=== PATIENT | male | born 1985 | race Caucasian/White ===

== ENCOUNTER 2018-02-18 19:21 | Emergency (ER) | payer OTHER, SELFPAY ==
[2018-02-18 19:22] VITALS: BP 147/100; PULSE 86; RESP 16; TEMP 37.2; O2SAT 96; BMI 19.5
--- NOTE | 2018-02-18 19:36 | ED.RN ---
ACCORDING TO ED DRUG SCREEN INDICATOR PT IS DRUG TEST PER [facility] AND THIS RN ASKED ADMITTED ATTORNEYS LEONARD TO CONTACT [facility] FOR PT.
--- NOTE | 2018-02-18 19:47 | ED.DCSUM_ITS ---
- ER Visit Summary Date of Service: 02/18/18 Chief Complaint: Left thumb laceration History of Present Illness: The patient is a 32 M left thumb laceration at work. Happened 2 hours prior to arrival. Bleeding controlled. Tetanus unknown. No paresthesias. No anticoagulation medications. Physical Examination: General: Alert and oriented ?3, no acute distress HEENT: Normocephalic, atraumatic. Moist mucosa membranes Neck: supple, nontender. Cardiovascular: Regular rate and rhythm, no murmurs Respiratory: Normal breath sounds, symmetric, no distress Abdomen: Soft, nontender, nondistended Extremities: Nontender, no edema, pulses intact ?4 Neuro: no focal neurological deficits. Skin: Left thumb: Less than 0.5 cm laceration radial aspect nailbed. No bleeding. No nailbed involvement. Test Results: [] Emergency Department Course and Treatment: Tetanus updated. Superficial laceration. Dermabond. Work restrictions were given. Follow-up with [facility]. Treatment Plan: [] Disposition: Discharge Impression: Left thumb laceration This note was generated with [employer] dictation software. It may contain incorrect words, spelling, and punctuation that were not noted in review of the chart prior to signing ED Disposition - Plan for ED Patient: Disposition: Home or Assisted Living Chief Complaint: Laceration Diagnosis: Laceration of left thumb Instructions: ED Laceration All Referrals: Care Physician,No Primary [Primary Care Provider] - [facility] [GROUP OF PHYSICIANS] - 3-5 Days
--- NOTE | 2018-02-18 20:00 | ED.RN ---
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 pt is to be tested per database and per company request. [facility] contacted.
[2018-02-18] MEDS: Diphth,Pertuss(Acell),Tet Vac 0.5 ML Vial IM (20:04)
== END 2018-02-18 20:52 | disposition home or self-care (01) ==
PROVIDERS: Emergency Provider Emergency Medicine
DX: S61.012A Laceration without foreign body of left thumb without damage to nail, initial encounter (principal); X58.XXXA Exposure to other specified factors, initial encounter; Y93.9 Activity, unspecified; Y92.89 Other specified places as the place of occurrence of the external cause; Y99.0 Civilian activity done for income or pay; Z23 Encounter for immunization; Z72.0 Tobacco use
CPT/HCPCS: 12001; 90471; 90715; 99283

== ENCOUNTER 2019-02-03 14:05 | Emergency (ER) | payer MEDICAID, SELFPAY ==
[2019-02-03 14:06] VITALS: BP 142/87; PULSE 82; RESP 16; TEMP 36.9; O2SAT 98; BMI 19.5
[2019-02-03 14:40] LABS: Absolute Lymphocyte Count 2.08 X10^3/ul (0.83-4.51); Absolute Neutrophil Count 3.1 X10^3/uL (2.0-7.7); Basophil# 0.04 X10^3/uL; Basophil% 0.7 % (0-1); Eosinophil# 0.04 X10^3/uL; Eosinophils% 0.7 % (0-5); Hematocrit 42.5 % (40-54); Lymphocyte # 2.08 X10^3/ul (4.0); Lymphocyte % 35.5 % (19-41); Mean Corp Hgb Conc 35.3 g/gl (32-36); Mean Corpuscular Hgb 33.3 pg (27.0-32.0); Mean Corpuscular Volume 94.4 fL (80-94); Mean Platelet Vol. 8.2 fl (6.2-12.0); Monocyte# 0.62 X10^3/uL; Monocyte% 10.6 % (0-10); Neutrophil # 3.08 X10^3/uL (2.7-7.7); Neutrophil % 52.5 % (47-70); Platelet Count 266 K/mm3 (150-450); RBC Distribution Width CV 13.1 % (11.6-14.6); RBC Distribution Width SD 45.5 fl (35.1-43.9); White Blood Count 5.9 K/mm3 (4.4-11.0)
[2019-02-03 14:41] LABS: POSITIVE COUNT NO; POSITIVE DIFFERENTIAL NO; POSITIVE MORPHOLOGY NO
[2019-02-03 14:50] LABS: Anion Gap 6 (5-15); BUN 6 mg/dL (7-18); BUN/Creat Ratio 8.1 RATIO (10-20); Calcium,Total 8.6 mg/dL (8.5-10.1); Chloride 102 mmol/L (98-107); Creatinine, Serum 0.74 mg/dL (0.70-1.30); EST Glomerular Filtration Rate 130 mL/min (>60); Est Glom Filt Rate - Afr Amer 157 mL/min (>60); Estimated Creatinine Clearance 113.87 ml/min; Glucose 89 mg/dL (74-106); Potassium 3.8 mmol/L (3.5-5.1); Sodium Level 135 mmol/L (136-145)
[2019-02-03 15:56] LABS: Bacteria 0 SEEN /hpf (None Seen); Mucous, Urine 0 SEEN /hpf (<or=2+); Red Blood Cells-Urine 0 SEEN /hpf (0-5); White Blood Cells 0 SEEN /hpf (0-5)
[2019-02-03 16:02] LABS: Color, Urine Yellow (Yellow); Glucose, Dipstick Normal (Normal); Ketone-Dipstick Negative (Negative); Leukocyte Esterase-Dipstick Negative /ul (Negative); Nitrite-Dipstick Negative (Negative); Occult Blood-Urine Negative /ul (Negative); Protein-Dipstick Negative (Negative); Urine Bilirubin Dipstick Negative (Negative); Urine Clarity Sl. Cloudy (Clear); Urine Urobilinogen Normal (Normal)
--- NOTE | 2019-02-03 16:03 | ED.VISSUMM ---
- ER Visit Summary Date of Service: 02/03/19 Chief Complaint: Abdominal pain History of Present Illness: The patient is a 33 M who presents for abdominal pain since yesterday. Pain is in the epigastric region and radiates around the upper abdomen and into the back, including both shoulder blades. Patient has a history of pancreatitis and does drink alcohol daily. Patient has nausea but no vomiting or diarrhea. No fever. His lactate is elevated patient states the pain is severe worse with standing and improved with lying down. Patient denies any other medical history. He takes no medications daily. Patient is allergic to Zofran. Physical Examination: Vital signs: afebrile, hemodynamically stable, no hypoxia on room air General: well nourished, well developed, in no distress Skin: warm, dry, no rash, no pallor HEENT: normocephalic and atraumatic; PERRL, EOMI, moist mucous membranes Cardiovascular: regular rate and rhythm without murmurs, no peripheral edema, 2+ pulses all distal extremities Respiratory: No increased work of breathing, lungs are clear to auscultation bilaterally, no rales, rhonchi or wheezing Abdominal: Abdomen is soft, tender in the epigastrium with hyperactive bowel sounds, no guarding or rebound, no masses MSK: Moves all extremities, no deformities, normal strength Neuro: Awake and alert, oriented ?4. No facial droop, sensation and motor function intact and symmetric Test Results: Abnormal Lab Results 02/03/19 02/03/19 02/03/19 14:30 14:30 14:30 WBC 5.9 RBC 4.50 L Hgb 15.0 Hct 42.5 MCV 94.4 H MCH 33.3 H MCHC 35.3 RDW 13.1 RDW Differential 45.5 H Plt Count 266 MPV 8.2 Immature Gran % (Auto) 0.000 Neut % (Auto) 52.5 Lymph % (Auto) 35.5 [place]asta % (Auto) 10.6 H Eos % (Auto) 0.7 Baso % (Auto) 0.7 Absolute Neuts (auto) 3.1 Absolute Lymphs (auto) 2.08 Total Counted Not Reportable Sodium 135 L Potassium 3.8 Chloride 102 Carbon Dioxide 27.0 Anion Gap 6 BUN 6 L Creatinine 0.74 Estim Creat Clear Calc 113.87 Est GFR (MDRD) Af Amer 157 Est GFR (MDRD) Non-Af 130 BUN/Creatinine Ratio 8.1 L Glucose 89 Calcium 8.6 Total Bilirubin 1.00 Direct Bilirubin 0.24 AST 102 H ALT 109 H Alkaline Phosphatase 91 Total Protein 8.0 Albumin 4.3 Globulin 3.7 Lipase 144 Urine Color Urine Clarity Urine pH Ur Specific [place] Urine Protein Urine Glucose (UA) Urine Ketones Urine Occult Blood Urine Nitrite Urine Bilirubin Urine Urobilinogen Ur Leukocyte Esterase Urine RBC Urine WBC Ur Squamous Epith Cells Urine Bacteria Urine Mucus 02/03/19 15:45 WBC RBC Hgb Hct MCV MCH MCHC RDW RDW Differential Plt Count MPV Immature Gran % (Auto) Neut % (Auto) Lymph % (Auto) [place]asta % (Auto) Eos % (Auto) Baso % (Auto) Absolute Neuts (auto) Absolute Lymphs (auto) Total Counted Sodium Potassium Chloride Carbon Dioxide Anion Gap BUN Creatinine Estim Creat Clear Calc Est GFR (MDRD) Af Amer Est GFR (MDRD) Non-Af BUN/Creatinine Ratio Glucose Calcium Total Bilirubin Direct Bilirubin AST ALT Alkaline Phosphatase Total Protein Albumin Globulin Lipase Urine Color Yellow Urine Clarity Sl. Cloudy Urine pH 6.0 Ur Specific [place] 1.010 Urine Protein Negative Urine Glucose (UA) Normal Urine Ketones Negative Urine Occult Blood Negative Urine Nitrite Negative Urine Bilirubin Negative Urine Urobilinogen Normal Ur Leukocyte Esterase Negative Urine RBC 0 SEEN Urine WBC 0 SEEN Ur Squamous Epith Cells 0-5 SEEN Urine Bacteria 0 SEEN Urine Mucus 0 SEEN Medications Given Discontinued Medications Sodium Chloride () 1,000 mls @ 999 mls/hr IV .Q1H1M ONE Stop: 02/03/19 17:03 Last Admin: 02/03/19 17:50 Dose: Not Given Emergency Department Course and Treatment: Patient was given IV fluids, Reglan and Toradol for symptomatic relief. Labs were performed to evaluate for possible pancreatitis and showed no leukocytosis, very mild elevation of the transaminases, less than 2-2-1/2 times the upper limit of normal. Lipase was normal. Urine was negative for infection. There was no sign of pancreatitis on patient's workup. Patient did not want to stay any longer and left before I could reevaluate him or talk to him. On review of the orders, the Reglan and Toradol had never been ordered by me and thus patient had not received these medications. Patient left prior to me being able to treat his symptoms patient. Patient had no concerning findings on his workup or on his exam that would have required admission or surgical consultation. Patient left prior to formal discharge at completion of treatment Treatment Plan: [] Disposition: [] Impression: Abdominal pain, left prior to formal discharge This note was generated with [employer] dictation software. It may contain incorrect words, spelling, and punctuation that were not noted in review of the chart prior to signing ED Disposition - Plan for ED Patient: Disposition: Home or Assisted Living Referrals: Care Physician,No Primary [Primary Care Provider] -
[2019-02-03 16:15] LABS: Squamous Epithelial Cells - UA 0-5 SEEN /hpf (0-5)
[2019-02-03 16:36] LABS: AST(SGOT) 102 U/L (15-37); Alanine Aminotransfer ALT/SGPT 109 U/L (16-61); Albumin, Serum 4.3 g/dL (3.2-5.0); Alkaline Phosphatase 91 U/L (45-117); Bilirubin, Direct 0.24 mg/dL (0.00-0.30); Globulin 3.7 g/dL (2.2-4.2); Lipase 144 U/L (73-393)
--- NOTE | 2019-02-03 17:15 | ED.RN ---
PT STANDING IN RM [address] FULLY DRESSED. PT STATES HE HAS WAITED TO LONG CAN IS GOING HOME. THIS RN TOOK OUT PT'S IV. PT LEFT AT 1715, DR. FATIMA MADE AWARE.
== END 2019-02-03 17:15 | disposition home or self-care (01) ==
LOC: ED 16:47
PROVIDERS: Emergency Provider Emergency Medicine
DX: R10.13 Epigastric pain (principal); R11.0 Nausea; Z72.0 Tobacco use; Z87.19 Personal history of other diseases of the digestive system
CPT/HCPCS: 80048; 80076; 81001; 83690; 85025; 99283; A4216

== ENCOUNTER 2025-02-16 13:57 | Emergency (ER) | payer OTHER, SELFPAY ==
[2025-02-16 13:57] VITALS: BP 148/94; PULSE 117; PULSE 120; RESP 20; TEMP 37.3; O2SAT 98; BMI 21.7
--- NOTE | 2025-02-16 14:45 | EDS_ITS ---
HPI <RICHIE Victoria - Last Filed: 02/16/25 15:05> History of Present Illness Chief Complaint: Dental Narrative Narrative: 39-year-old male has had most of his teeth removed and over the last 3 days developed pain in his remaining left upper molar. His dentist could not remove it in the past and he was told to see an oral surgeon. He is concerned he has a dental infection. He has no fever chills or difficulty swallowing or breathing. PFSH <RICHIE Victoria - Last Filed: 02/16/25 15:05> PFSH Home Medications ?Medication ?Instructions ?Recorded ?Last Taken ?Type penicillin V potassium 500 mg 500 mg PO 4X/DAY #40 tab s 02/16/25 Unknown Rx tablet Allergy/AdvReac Type Severity Reaction Status Date / Time ondansetron HCl (From [employer] Allergy Hives Verified 02/16/25 13:58 (as hydrochloride)) Social History Smoking Status: Current every day smoker tobacco type: cigarettes ROS <RICHIE Victoria - Last Filed: 02/16/25 15:05> ROS ED ROS Narrative Constitutional: Negative for fever, chills, malaise. GI: Negative for nausea, vomiting. Neuro: Negative for headache. EXAM <RICHIE Victoria Last Filed: 02/16/25 15:05> Physical Exam Narrative Exam Narrative: CONST: Patient sitting in no acute distress. EYES: Normal inspection. ENT: Most teeth are removed. Left upper molar remnant is present with significant caries and tenderness. There is no periapical abscess. No trismus or tongue elevation, normal posterior oropharynx, no drooling or stridor. Sublingual space is soft. NECK: Normal inspection. Trachea midline. RESP: No respiratory distress, CTAB. CVS: Mildly tachycardic with regular rhythm, no murmur, no gallop. SKIN: Color normal, no rash, warm, dry, intact. EXTREMITIES: Normal appearance, no pedal edema. NEURO: Alert and answering questions appropriately. PSYCH: Normal affect. Const Vital Signs: 02/16/25 13:57 02/16/25 13:57 Temperature 99.1 F Temperature Source Temporal Pulse Rate 117 H 120 H Respiratory Rate 20 H Blood Pressure 148/94 H Blood Pressure Mean 112 Pulse Ox 98 Oxygen Delivery Method Room Air <Dr. Ash Musa DO - Last Filed: 02/16/25 15:12> Physical Exam Const Vital Signs: 02/16/25 13:57 02/16/25 13:57 Temperature 99.1 F Temperature Source Temporal Pulse Rate 117 H 120 H Respiratory Rate 20 H Blood Pressure 148/94 H Blood Pressure Mean 112 Pulse Ox 98 Oxygen Delivery Method Room Air [facility] <RICHIE Victoria - Last Filed: 02/16/25 15:05> [facility] Narrative Medical decision making narrative: 39-year-old male was had most of his teeth removed and a significant DKA and his remaining left upper molar remnant became painful a few days ago. There are signs of caries. No signs of drainable periapical abscess or Luis's angina. He was tachycardic in triage, however looks well and has no systemic signs or symptoms. I prescribed penicillin VK and he will take [id number] Tylenol. I discussed return precautions and recommended follow-up with an oral surgeon as he was told to do in the past by a dentist. He was discharged in stable condition. <Dr. Ash Musa DO - Last Filed: 02/16/25 15:12> [facility] History & Record Review Discussion w/independent historian: Patient Treatment and Re-Evaluation Narrative: I have personally performed a face to face assessment of the patient and have reviewed the ANDREINA Note. I performed a substantive portion of the visit including all aspects of the following. My ross findings include: History is 39-year-old male presenting to the emergency room with dental pain. Patient states that he has pretty significant dental decay. He denies any fe vers. He is concerned about whether or not he can have his colonoscopy on Tuesday. Exam is Left upper molar demonstrates tenderness particularly along the maxilla on the left. He notes some mild swelling. There is no significant erythema. There is no trismus. Medical Decison Making patient will be started on antibiotics. He needs to follow-up with dentistry. He is to call his surgeon or try to get in touch with the on-call surgeon this weekend to discuss his colonoscopy on Tuesday. Discharge Plan Triage Chief Complaint: Dental ED Midlevel Provider: Paula Herrmann ED Provider: Ash Musa Dx/Rx/DC Orders Clinical Impression: Dental infection, Dental caries Instructions: Dental Abscess Prescriptions: New penicillin V potassium 500 mg tablet 500 mg PO 4X/DAY Qty: 40 0RF Primary Care Provider: Care Physician,No Primary Referrals: Care Physician,No Primary [Primary Care Provider] - Activity Restrictions/Additional Instructions: Take all of the antibiotics as prescribed and [id number] Tylenol every 6 hours for pain. I recommend following up with an oral surgeon after symptoms resolved to have the tooth removed. Print Language: Afghan Disposition Disposition: Home, Self Care Discharge Date/Time: 02/16/25 15:01
[2025-02-16] MEDS: Penicillin Vk 250 MG Tablet 500 MG PO (14:55)
== END 2025-02-16 15:01 | disposition home or self-care (01) ==
LOC: ED 14:55
PROVIDERS: Emergency Provider Emergency Medicine; Visit Provider Emergency Medicine
DX: K04.7 Periapical abscess without sinus (principal); K02.9 Dental caries, unspecified; F17.210 Nicotine dependence, cigarettes, uncomplicated
CPT/HCPCS: 99282